=== PATIENT | female | born 1990 | race Caucasian/White ===

== ENCOUNTER 2017-11-09 18:56 | Inpatient (IN) | payer OTHER ==
[~2017-11-09] VITALS: Ht 149.9 cm; Wt 69.9 kg
[2017-11-09] MEDS ORDERED: PRENATAL 19 TA1 EACH PO (19:01)
== END 2017-12-14 08:14 | DRG 775 ==
LOC: LDR 18:56 → OB/GYN 18:56 → LDR 11-10 18:24 → OB/GYN 11-12 16:34
PROC: 4A1HXCZ Monitoring of Products of Conception, Cardiac Rate, External Approach (ICD-10-PCS; 2017-11-09)
PROC: BY4CZZZ Ultrasonography of Second Trimester, Single Fetus (ICD-10-PCS; 2017-11-10)
PROC: 4A033R1 Measurement of Arterial Saturation, Peripheral, Percutaneous Approach (ICD-10-PCS; 2017-11-10)
PROC: BU4CZZZ Ultrasonography of Uterus and Ovaries (ICD-10-PCS; 2017-11-10)
PROC: BY4CZZZ Ultrasonography of Second Trimester, Single Fetus (ICD-10-PCS; 2017-11-19)
PROC: BY4CZZZ Ultrasonography of Second Trimester, Single Fetus (ICD-10-PCS; 2017-12-03)
PROC: 10E0XZZ Delivery of Products of Conception, External Approach (ICD-10-PCS; principal; 2017-12-12)
PROC: BY4FZZZ Ultrasonography of Third Trimester, Single Fetus (ICD-10-PCS; 2017-12-12)
DX: O32.1XX0 Maternal care for breech presentation, not applicable or unspecified (principal); O60.13X0 Preterm labor second trimester with preterm delivery third trimester, not applicable or unspecified; O34.32 Maternal care for cervical incompetence, second trimester; O26.872 Cervical shortening, second trimester; Z3A.28 28 weeks gestation of pregnancy; Z37.0 Single live birth